=== PATIENT | male | born 1960 | race Caucasian/White ===

== ENCOUNTER 2022-08-28 09:29 | Day surgery (SDC) | payer OTHER ==
[~2022-08-28] VITALS: Ht 152.4 cm; Wt 68.0 kg
[2022-08-28] MEDS ORDERED: fentaNYL citrate 0.05 MG/ML VIAL ONE (10:35)
[2022-08-28] MEDS ORDERED: diphenhydrAMINE 50 MG/ML VIAL ONE (10:35)
[2022-08-28] MEDS ORDERED: MIDAZOLAM 2 MG/2 ML VIAL ONE (10:35)
[2022-08-28] MEDS ORDERED: LIDOCAINE 2% 100 MG/5 ML UJET TP ONE (10:36)
[2022-08-28] MEDS ORDERED: MIDAZOLAM 2 MG/2 ML VIAL IVP ONE (14:30)
[2022-08-28] MEDS ORDERED: fentaNYL citrate 0.05 MG/ML VIAL IVP ONE (14:30)
== END 2022-08-28 12:26 | disposition home or self-care (01) ==
LOC: MDS 09:29 → MMU 09:33 → MDS 12:26
PROVIDERS: ATTEND Internal Medicine Gastroenterology
DX: Z12.11 Encounter for screening for malignant neoplasm of colon (principal); D12.4 Benign neoplasm of descending colon; E78.5 Hyperlipidemia, unspecified; E11.9 Type 2 diabetes mellitus without complications; K21.9 Gastro-esophageal reflux disease without esophagitis; Z79.84 Long term (current) use of oral hypoglycemic drugs
CPT/HCPCS: 45385; J2250; J3010; J1200

== ENCOUNTER 2023-07-18 06:11 | Day surgery (SDC) | payer OTHER ==
[~2023-07-18] VITALS: Ht 152.4 cm; Wt 108.0 kg
[2023-07-18] MEDS ORDERED: fentaNYL citrate 0.05 MG/ML VIAL ONE (07:56)
[2023-07-18] MEDS: fentaNYL citrate 0.05 MG/ML VIAL IVP ONE (08:42)
== END 2023-07-18 09:40 | disposition home or self-care (01) ==
LOC: MDS 06:11 → MMU 06:35 → MDS 09:40
PROVIDERS: ATTEND Internal Medicine Gastroenterology
DX: Z09 Encounter for follow-up examination after completed treatment for conditions other than malignant neoplasm (principal); Z86.010 Personal history of colon polyps; K57.30 Diverticulosis of large intestine without perforation or abscess without bleeding; K63.5 Polyp of colon; I10 Essential (primary) hypertension; E11.9 Type 2 diabetes mellitus without complications; E66.9 Obesity, unspecified; Z68.42 Body mass index [BMI] 45.0-49.9, adult; Z87.442 Personal history of urinary calculi; Z98.890 Other specified postprocedural states
CPT/HCPCS: 45385; 82948; J3010